=== PATIENT | female | born 1960 | race Caucasian/White ===

== ENCOUNTER 2022-05-04 08:41 | Emergency (ER) | payer SELFPAY ==
[2022-05-04] MEDS ORDERED: Haloperidol Lactate 5 MG/ML SDV IM ONE (08:52)
[2022-05-04] MEDS ORDERED: LORazepam 2 MG/ML SDV IM ONE (08:52)
[2022-05-04] MEDS ORDERED: Haloperidol Lactate 5 MG/ML SDV ONE (08:54)
[2022-05-04] MEDS ORDERED: LORazepam 2 MG/ML SDV ONE (08:54)
[2022-05-04] MEDS ORDERED: Dextrose 5%-0.9% NaCl 1,000 ML IV SCH (09:15)
[2022-05-04] MEDS ORDERED: Acetaminophen 325 MG Tab PO ONE (09:28)
[2022-05-04 10:02] LABS: HEMOGLOBIN A1C 5.9 %
[2022-05-04 10:03] LABS: ESTIMATED GFR 84 mL/min (>60)
[2022-05-04 10:06] LABS: ACETAMINOPHEN 0 ug/mL (10-30)
[2022-05-04 10:21] LABS: CORONAVIRUS COVID-19 NAA NEGATIVE (NEGATIVE)
[2022-05-04] MEDS ORDERED: LORazepam 2 MG/ML SDV IVPUSH ONE (15:04)
[2022-05-04] MEDS ORDERED: Haloperidol Lactate 5 MG/ML SDV IVPUSH ONE (15:07)
[2022-05-05] MEDS ORDERED: Haloperidol Lactate 5 MG/ML SDV IVPUSH STA (02:29)
[2022-05-05] MEDS ORDERED: LORazepam 2 MG/ML SDV IVPUSH STA (02:30)
[2022-05-05] MEDS ORDERED: LORazepam 2 MG/ML SDV IVPUSH ONE (10:04)
== END 2022-05-05 12:00 ==
LOC: JD.ED 08:41
DX: F31.12 Bipolar disorder, current episode manic without psychotic features, moderate (principal); Z20.822 Contact with and (suspected) exposure to COVID-19
CPT/HCPCS: 0240U; 36415; 51701; 71045; 80053; 80143; 80179; 80306; 80307; 81001; 83036; 83735; 83880; 84443; 85025; 85610; 85730; 86140; 93005; 96372; 96374; 96375; 96376; 99285; J1630; J2060; J7042

== ENCOUNTER 2022-10-18 12:14 | Emergency (ER) | payer SELFPAY ==
[2022-10-18] MEDS ORDERED: Haloperidol Lactate 5 MG/ML SDV IM ONE (12:51)
[2022-10-18 13:37] LABS: ESTIMATED GFR 73 mL/min (>60)
[2022-10-18 13:38] LABS: ACETAMINOPHEN 0 ug/mL (10-30)
[2022-10-18 14:46] LABS: CORONAVIRUS COVID-19 NAA NEGATIVE (NEGATIVE)
[2022-10-18] MEDS ORDERED: ARIPiprazole 5 MG Tab PO ONE (16:03)
[2022-10-18] MEDS ORDERED: hydrOXYzine HCl 50 MG Tab PO SCH (16:15)
== END 2022-10-18 17:47 ==
LOC: JD.ED 12:14
DX: F31.9 Bipolar disorder, unspecified (principal); F29 Unspecified psychosis not due to a substance or known physiological condition; Z88.0 Allergy status to penicillin; Z20.822 Contact with and (suspected) exposure to COVID-19
CPT/HCPCS: 0240U; 36415; 80053; 80143; 80179; 80306; 80307; 81001; 84443; 85025; 85610; 87086; 99284; A9270; 99283